=== PATIENT | female | born 1955 | race Caucasian/White ===

== ENCOUNTER 2022-06-16 03:38 | Inpatient (IN) | payer MEDICARE ==
[2022-06-15] MEDS: NITROGLYCERIN/D5W 200 MCG/ML 250 ML IV SCH (05:30)
[~2022-06-16] VITALS: Ht 157.5 cm; Wt 118.4 kg
[2022-06-16] VITALS (35 sets, daily range): BP systolic 83–136; BP diastolic 49–99
[2022-06-16] MEDS ORDERED: SODIUM CHLORIDE FLUSH 10 ML SYR IV PRN (03:45)
[2022-06-16] MEDS ORDERED: ASPIRIN 325 MG TAB PO ONE (03:45)
[2022-06-16 03:54] LABS: BASOPHILS # (AUTO) 0.1 (0.0-0.1); BASOPHILS % 0.5 % (0.0-1.0); EOSINOPHILS % 0.4 % (0.0-6.0); HEMOGLOBIN 14.5 g/dL (12.0-16.0); LYMPHOCYTES # (AUTO) 1.2 (1.0-3.2); LYMPHOCYTES % 11.6 % (18.0-39.1); MEAN CORPUSCULAR HEMOGLOBIN 27.8 pg (28-32); MEAN CORPUSCULAR HGB CONC 30.9 g/dL (31-35); MONOCYTES # (AUTO) 0.9 (0.2-0.8); MONOCYTES % 8.6 % (4.4-11.3); NEUTROPHILS # (AUTO) 8.2 (2.1-6.9); NEUTROPHILS % 78.7 % (38.7-80.0); PLATELET COUNT 304 x10e3/uL (140-360); RED BLOOD COUNT 5.22 x10e6/uL (3.6-5.1); RED CELL DISTRIBUTION WIDTH 13.3 % (11.7-14.4)
[2022-06-16 04:02] LABS: INR 0.98; PROTHROMBIN TIME 13.2 seconds (11.9-14.5)
[2022-06-16 04:03] LABS: PARTIAL THROMBOPLASTIN TIME 26.1 seconds (23.8-35.5)
[2022-06-16 04:10] LABS: ALBUMIN 3.8 g/dL (3.5-5.0); ALBUMIN/GLOBULIN RATIO 0.9 (0.8-2.0); ANION GAP 16.3 mmol/L (8-16); CALCIUM 9.2 mg/dL (8.4-10.2); CREATININE, SERUM 0.85 mg/dL (0.57-1.11); POTASSIUM 4.3 mmol/L (3.5-5.1)
[2022-06-16] MEDS ORDERED: HEPARIN 25,000 UNIT 1,000 UNIT in DEXTROSE 5% 250ML 250 ML IV SCH (05:00)
[2022-06-16] MEDS ORDERED: HEPARIN SOD (PORCINE) 5,000 UNIT/ML VIAL IV ONE (05:00)
[2022-06-16] MEDS ORDERED: ONDANSETRON HCL INJ 2MG/ML 2ML 2 MG/ML VIAL IV PRN (05:30)
[2022-06-16] MEDS ORDERED: HEPARIN 25,000 UNIT DRIP IV ONE (05:34)
[2022-06-16] MEDS: SODIUM CHLORIDE 0.9% 1000ML 1,000 ML IV SCH ×2 (05:45→17:03)
[2022-06-16] MEDS ORDERED: HEPARIN 25,000 UNIT 900 UNIT in DEXTROSE 5% 250ML 250 ML IV SCH (06:00)
[2022-06-16] MEDS: HEPARIN 25,000 UNIT 900 UNIT in DEXTROSE 5% 250ML 250 ML IV SCH ×2 (06:01→19:16)
[2022-06-16 06:12] LABS: CREATINE KINASE MB 5.5 ng/mL (0-5.0)
[2022-06-16] MEDS ORDERED: HEPARIN 25,000 UNIT 25,000 UNIT in DEXTROSE 5% 250ML 250 ML IV SCH (06:15)
[2022-06-16] MEDS ORDERED: FENTANYL CITRATE/PF 100MCG/2 ML INJ IV ONE ×2 (06:30→06:45)
[2022-06-16] MEDS ORDERED: FENTANYL CITRATE/PF 100MCG/2 ML INJ ONE ×2 (06:40→07:44)
[2022-06-16] MEDS ORDERED: IOPAMIDOL 370 MG/ML 100 ML INFUS..BTL INJ ONE ×3 (07:30→08:31)
[2022-06-16] MEDS ORDERED: LIDOCAINE HCL 2% LOCAL 20 ML VIAL ONE (07:37)
[2022-06-16] MEDS ORDERED: HEPARIN SOD/SOD CHLORIDE 0 ML ONE (07:38)
[2022-06-16] MEDS ORDERED: SODIUM CHLORIDE 0.9% 1000ML 0 ML ONE (07:39)
[2022-06-16] MEDS ORDERED: NITROGLYCERIN/D5W 200 MCG/ML 0 ML ONE (07:39)
[2022-06-16] MEDS ORDERED: HEPARIN SOD (PORCINE) 1000 UNIT/ML 30ML ONE (07:39)
[2022-06-16] MEDS ORDERED: VERAPAMIL HCL 2.5 MG/ML 2 ML VIAL ONE (07:40)
[2022-06-16] MEDS ORDERED: MIDAZOLAM HCL 2 MG/2 ML VIAL ONE (07:44)
[2022-06-16] MEDS ORDERED: Morphine 2mg Syringe 2 MG/ML SYR IV PRN (08:30)
[2022-06-16] MEDS ORDERED: SODIUM CHLORIDE 0.9% 0 ML ONE (08:31)
[2022-06-16] MEDS ORDERED: DEXTROSE 50% SYRINGE 50 ML IV PRN (09:00)
[2022-06-16] MEDS ORDERED: INSULIN GLARGINE 100 UNITS/ML VIAL SQ ONE ×2 (09:30→14:00)
[2022-06-16] MEDS: HYDROMORPHONE 1MG/1ML INJ IV PRN ×2 (09:30→21:22)
[2022-06-16] MEDS ORDERED: METOPROLOL SUCCINATE 25 MG TAB XL PO ONE (12:00)
[2022-06-16] MEDS ORDERED: KETOROLAC TROMETHAMINE 30 MG/ML VIAL IV ONE (12:15)
[2022-06-16] MEDS: INSULIN LISPRO 100 UNIT/1 ML 3ML VIAL SQ SCH ×3 (15:15→20:43)
[2022-06-16] MEDS ORDERED: CARVEDILOL 3.125 MG TAB PO SCH (17:00)
[2022-06-16] MEDS ORDERED: COLCHICINE 0.6 MG TAB PO SCH (17:00)
[2022-06-16] MEDS: NAPROXEN 250 MG TAB PO SCH (17:03)
[2022-06-16 18:30] LABS: CREATINE KINASE MB 74.4 ng/mL (0-5.0)
[2022-06-16] MEDS ORDERED: KETOROLAC TROMETHAMINE 30 MG/ML VIAL IV PRN (20:00)
[2022-06-16] MEDS: ATORVASTATIN 40 MG TAB PO SCH (20:42)
[2022-06-16 22:27] LABS: CREATINE KINASE MB 91.4 ng/mL (0-5.0)
[2022-06-16] MEDS ORDERED: KETOROLAC TROMETHAMINE 30 MG/ML VIAL IV STA (23:57)
[2022-06-17] VITALS (25 sets, daily range): BP systolic 96–138; BP diastolic 48–98
[2022-06-17] MEDS: NITROGLYCERIN/D5W 200 MCG/ML 250 ML IV SCH (01:22)
[2022-06-17 03:52] LABS: CLARITY,URINE SL CLOUDY (CLEAR); COLOR,URINE YELLOW (YELLOW); KETONES,URINE NEGATIVE (NEGATIVE); LEUKOCYTE ESTERASE ,URINE 1+ (NEGATIVE); NITRITE,URINE NEGATIVE (NEGATIVE); PROTEIN,URINE DIPSTICK NEGATIVE (NEGATIVE)
[2022-06-17 03:53] LABS: AMPHETAMINES SCREEN,URINE NEGATIVE (NEGATIVE); BENZODIAZEPINES SCREEN,URINE POSITIVE (NEGATIVE); PHENCYCLIDINE SCREEN,URINE NEGATIVE (NEGATIVE); URINE UROBILINOGEN 0.2 mg/dL (0.2 - 1)
[2022-06-17 04:16] LABS: BACTERIA,URINE MODERATE /HPF; EPITHELIAL CELLS,URINE FEW /LPF; WBC,URINE (MAN) >50 /HPF (0-5)
[2022-06-17 04:17] LABS: RENAL EPITHELIAL CELLS,URINE FEW; TRANSITIONAL EPI CELLS,URINE FEW; TRICHOMONAS,URINE MODERATE
[2022-06-17] MEDS: SODIUM CHLORIDE 0.9% 1000ML 1,000 ML IV SCH (04:53)
[2022-06-17 06:27] LABS: BASOPHILS % 0.5 % (0.0-1.0); EOSINOPHILS % 0.5 % (0.0-6.0); HEMATOCRIT 32.7 % (34.2-44.1); HEMOGLOBIN 10.6 g/dL (12.0-16.0); LYMPHOCYTES # (AUTO) 1.4 (1.0-3.2); LYMPHOCYTES % 25.2 % (18.0-39.1); MEAN CORPUSCULAR HEMOGLOBIN 27.9 pg (28-32); MEAN CORPUSCULAR HGB CONC 32.4 g/dL (31-35); MEAN CORPUSCULAR VOLUME 86.1 fL (81-99); MONOCYTES # (AUTO) 0.6 (0.2-0.8); MONOCYTES % 10.5 % (4.4-11.3); NEUTROPHILS # (AUTO) 3.6 (2.1-6.9); NEUTROPHILS % 62.9 % (38.7-80.0); PLATELET COUNT 181 x10e3/uL (140-360); RED CELL DISTRIBUTION WIDTH 14.2 % (11.7-14.4)
[2022-06-17 07:03] LABS: ALBUMIN 2.6 g/dL (3.5-5.0); ANION GAP 10.4 mmol/L (8-16); CREATININE, SERUM 0.63 mg/dL (0.57-1.11); POTASSIUM 3.4 mmol/L (3.5-5.1)
[2022-06-17 07:04] LABS: CALCIUM 6.9 mg/dL (8.4-10.2); MAGNESIUM 1.7 MG/DL (1.3-2.1); PHOSPHORUS 2.4 MG/DL (2.3-4.7)
[2022-06-17 07:21] LABS: CREATINE KINASE MB 63.3 ng/mL (0-5.0)
[2022-06-17] MEDS: HYDROMORPHONE 1MG/1ML INJ IV PRN (07:28)
[2022-06-17] MEDS ORDERED: POTASSIUM CHLORIDE 20MEQ/100ML 200 ML IV ONE (08:00)
[2022-06-17] MEDS: NAPROXEN 250 MG TAB PO SCH ×2 (08:03→17:05)
[2022-06-17] MEDS: INSULIN LISPRO 100 UNIT/1 ML 3ML VIAL SQ SCH ×4 (08:23→21:00)
[2022-06-17] MEDS ORDERED: METOPROLOL SUCCINATE 25 MG TAB XL PO SCH (09:00)
[2022-06-17] MEDS ORDERED: MAGNESIUM SULFATE 2GM/50ML 50 ML IV ONE (09:00)
[2022-06-17] MEDS ORDERED: REMDESIVIR 100MG 200 MG in SODIUM CHLORIDE 0.9% 100 ML IV ONE (09:00)
[2022-06-17] MEDS ORDERED: COLCHICINE 0.6 MG TAB PO SCH (09:00)
[2022-06-17] MEDS ORDERED: LOSARTAN POTASSIUM 25 MG TAB PO SCH (09:00)
[2022-06-17] MEDS ORDERED: MAGNESIUM SULFATE 2GM/50ML IV ONE (09:00)
[2022-06-17] MEDS ORDERED: POTASSIUM CHLORIDE 10MEQ EA PO ONE (09:30)
[2022-06-17] MEDS ORDERED: POTASSIUM PHOSPHATE 20 MM in SODIUM CHLORIDE 0.9% 250ML 250 ML IV SCH (11:00)
[2022-06-17] MEDS ORDERED: HEPARIN SOD (PORCINE) 1000 UNIT/ML 30ML ONE (13:43)
[2022-06-17] MEDS ORDERED: LIDOCAINE HCL 2% LOCAL 20 ML VIAL ONE (13:43)
[2022-06-17] MEDS ORDERED: NITROGLYCERIN/D5W 200 MCG/ML 250 ML ONE (13:44)
[2022-06-17] MEDS ORDERED: SODIUM CHLORIDE 0.9% 1000ML 1,000 ML ONE (13:44)
[2022-06-17] MEDS ORDERED: HEPARIN SOD/SOD CHLORIDE 2,000 ML ONE (13:44)
[2022-06-17] MEDS ORDERED: IOPAMIDOL 370 MG/ML 100 ML INFUS..BTL INJ ONE (13:44)
[2022-06-17] MEDS ORDERED: VERAPAMIL HCL 2.5 MG/ML 2 ML VIAL ONE (13:46)
[2022-06-17] MEDS ORDERED: MIDAZOLAM HCL 2 MG/2 ML VIAL ONE (13:46)
[2022-06-17] MEDS ORDERED: FENTANYL CITRATE/PF 100MCG/2 ML INJ ONE (13:47)
[2022-06-17] MEDS ORDERED: AMIODARONE HCL 100 ML IV ONE (14:33)
[2022-06-17] MEDS ORDERED: AMIODARONE 900MG 500 ML IV ONE (14:40)
[2022-06-17] MEDS ORDERED: DIGOXIN INJ 0.25 MG/ML 2 ML AMP IV ONE ×2 (16:45→17:00)
[2022-06-17] MEDS ORDERED: FUROSEMIDE INJ 10 MG/ML 4 ML VIAL IV ONE (16:45)
[2022-06-17] MEDS ORDERED: ISOSORBIDE MONONITRATE 30 MG TAB CR PO SCH (17:30)
[2022-06-17] MEDS: HEPARIN 25,000 UNIT 900 UNIT in DEXTROSE 5% 250ML 250 ML IV SCH (19:23)
[2022-06-17] MEDS: ATORVASTATIN 40 MG TAB PO SCH (20:20)
[2022-06-17] MEDS: ACETAMINOPHEN 325 MG TAB PO PRN (20:47)
[2022-06-17] MEDS ORDERED: FUROSEMIDE INJ 10 MG/ML 4 ML VIAL IV SCH (21:00)
[2022-06-17 21:18] LABS: ANION GAP 12.8 mmol/L (8-16); CALCIUM 7.6 mg/dL (8.4-10.2); CREATININE, SERUM 0.84 mg/dL (0.57-1.11); POTASSIUM 3.8 mmol/L (3.5-5.1)
[2022-06-17 21:26] LABS: CREATINE KINASE MB 37.4 ng/mL (0-5.0)
[2022-06-17] MEDS ORDERED: DIGOXIN INJ 0.25 MG/ML 2 ML AMP IV PRN (23:00)
[2022-06-18] VITALS: BP 109/75
[2022-06-18 01:00] VITALS: BP 104/73
[2022-06-18 02:00] VITALS: BP 105/75
[2022-06-18 03:00] VITALS: BP 109/76
[2022-06-18 04:00] VITALS: BP 97/58
[2022-06-18 05:00] VITALS: BP 108/72
[2022-06-18] MEDS: ACETAMINOPHEN 325 MG TAB PO PRN (06:02)
[2022-06-18 06:44] LABS: BASOPHILS % 0.4 % (0.0-1.0); EOSINOPHILS % 0.1 % (0.0-6.0); HEMATOCRIT 37.6 % (34.2-44.1); HEMOGLOBIN 11.5 g/dL (12.0-16.0); LYMPHOCYTES # (AUTO) 1.8 (1.0-3.2); LYMPHOCYTES % 24.5 % (18.0-39.1); MEAN CORPUSCULAR HEMOGLOBIN 27.8 pg (28-32); MEAN CORPUSCULAR HGB CONC 30.6 g/dL (31-35); MEAN CORPUSCULAR VOLUME 90.8 fL (81-99); MONOCYTES # (AUTO) 0.6 (0.2-0.8); MONOCYTES % 8.8 % (4.4-11.3); NEUTROPHILS # (AUTO) 4.7 (2.1-6.9); NEUTROPHILS % 65.9 % (38.7-80.0); PLATELET COUNT 216 x10e3/uL (140-360); RED BLOOD COUNT 4.14 x10e6/uL (3.6-5.1); RED CELL DISTRIBUTION WIDTH 14.3 % (11.7-14.4)
[2022-06-18 07:05] LABS: ALBUMIN 2.8 g/dL (3.5-5.0); ALBUMIN/GLOBULIN RATIO 0.8 (0.8-2.0); ANION GAP 11.6 mmol/L (8-16); CALCIUM 7.8 mg/dL (8.4-10.2); CREATININE, SERUM 0.81 mg/dL (0.57-1.11); POTASSIUM 3.6 mmol/L (3.5-5.1)
[2022-06-18 07:24] LABS: MAGNESIUM 1.9 MG/DL (1.3-2.1); PHOSPHORUS 2.8 MG/DL (2.3-4.7)
[2022-06-18] MEDS ORDERED: REMDESIVIR 100MG 100 MG in SODIUM CHLORIDE 0.9% 100 ML IV SCH (09:00)
[2022-06-18] MEDS ORDERED: AMIODARONE HCL 200 MG TAB PO SCH (09:00)
== END 2022-06-18 07:50 | disposition other institution (70) | DRG 280 ==
LOC: ER 03:41 → ERHOLD 05:24 → ICU 07:12
PROVIDERS: ADMIT Internal Medicine; ATTEND Internal Medicine
PROC: 02HV33Z Insertion of Infusion Device into Superior Vena Cava, Percutaneous Approach (ICD-10-PCS; 2022-06-16)
PROC: 4A023N7 Measurement of Cardiac Sampling and Pressure, Left Heart, Percutaneous Approach (ICD-10-PCS; principal; 2022-06-17)
PROC: B2111ZZ Fluoroscopy of Multiple Coronary Arteries using Low Osmolar Contrast (ICD-10-PCS; 2022-06-17)
PROC: XW043E5 Introduction of Remdesivir Anti-infective into Central Vein, Percutaneous Approach, New Technology Group 5 (ICD-10-PCS; 2022-06-17)
DX: I21.A1 Myocardial infarction type 2 (principal); U07.1 COVID-19; I31.9 Disease of pericardium, unspecified; Z68.42 Body mass index [BMI] 45.0-49.9, adult; I24.9 Acute ischemic heart disease, unspecified; I25.83 Coronary atherosclerosis due to lipid rich plaque; R09.02 Hypoxemia; I25.10 Atherosclerotic heart disease of native coronary artery without angina pectoris; E66.01 Morbid (severe) obesity due to excess calories; E87.8 Other disorders of electrolyte and fluid balance, not elsewhere classified; I25.84 Coronary atherosclerosis due to calcified coronary lesion; E11.40 Type 2 diabetes mellitus with diabetic neuropathy, unspecified; I48.91 Unspecified atrial fibrillation; I10 Essential (primary) hypertension; E78.5 Hyperlipidemia, unspecified; Z98.890 Other specified postprocedural states; Z88.5 Allergy status to narcotic agent; Z83.3 Family history of diabetes mellitus; Z82.49 Family history of ischemic heart disease and other diseases of the circulatory system; Z79.4 Long term (current) use of insulin; Z87.891 Personal history of nicotine dependence; Z90.49 Acquired absence of other specified parts of digestive tract; Z90.710 Acquired absence of both cervix and uterus; Z86.79 Personal history of other diseases of the circulatory system
CPT/HCPCS: 36415; 36569; 71045; 71260; 80048; 80053; 80307; 81001; 82550; 82553; 82948; 83036; 83690; 83735; 83880; 84100; 84443; 84484; 85025; 85610; 85730; 93005; 93306; 93458; 94799; 99152; 99153; 99252; 99284; C1887; J0248; J1160; J1170; J1644; J1815; J1885; J1940; J2001; J2250; J2405; J3010; J3475; J3480; J7030; J7050; Q9967